=== PATIENT | male | born 1975 | race Caucasian/White ===

== ENCOUNTER 2019-06-02 08:19 | Day surgery (SDC) | payer OTHER ==
[~2019-06-02 08:19] MED LIST: Lactated Ringers 1,000 ML IV SCH
--- NOTE | 2019-06-02 09:11 | PCM.PREANE ---
Preanesthetic Assessment - Anesthesia/Transfusion/Family Hx Anesthesia History: Prior Anesthesia Without Reaction (vemt hernia) Family History of Anesthesia Reaction: No Transfusion History: No Prior Transfusion(s) - Review of Systems General: No Symptoms Pulmonary: No Symptoms Cardiovascular: No Symptoms Gastrointestinal: No Symptoms Neurological: No Symptoms - Physical Assessment NPO Status Date: 06/01/19 O2 Sat by Pulse Oximetry: 93 Respiratory Rate: 16 Vital Signs: Last Vital Signs Temp 97.0 F 06/02/19 08:45 Pulse 90 06/02/19 08:45 Resp 16 06/02/19 08:45 BP 135/76 06/02/19 08:45 Pulse Ox 93 L 06/02/19 08:45 Height: 6 ft 1 in Weight: 99.79 kg ASA Class: 2 Mental Status: Alert & Oriented x3 Airway Class: Mallampati = 3 Dentition: Reports: Normal Dentition ROM/Head Extension: Full Lungs: Clear to Auscultation, Normal Respiratory Effort Cardiovascular: Regular Rate, Regular Rhythm - Allergies Allergies/Adverse Reactions: Allergies Allergy/AdvReac Type Severity Reaction Status Date / Time No Known Allergies Allergy Verified 05/28/19 16:29 - Blood Blood Available: No - Anesthesia Plan Pre-Op Medication Ordered: None - Acknowledgements Anesthesia Type Planned: General Anesthesia Pt an Appropriate Candidate for the Planned Anesthesia: Yes Alternatives and Risks of Anesthesia Discussed w Pt/Guardian: Yes Pt/Guardian Understands and Agrees with Anesthesia Plan: Yes Additional Comments: anes prob list: bilat shoulder pain from rotator cuff and 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- both being treated conservatively, smoker, HH/gerd PLAN: tiva PreAnesthesia Questionnaire HEENT History: Reports: Other (See Below) Other HEENT History: wears glasses Cardiovascular History: Reports: Other (See Below) Other Cardiovascular History: some hypertension in the past- not now- no medication Gastrointestinal History: Reports: GERD, Hiatal Hernia Genitourinary History: Reports: Renal Calculus Other Genitourinary History: passed 1 kidney stone Musculoskeletal History: Reports: Arthritis, Fracture Other Musculoskeletal History: hx of fx hand, wrist and ribs - Past Surgical History GI Surgical History: Reports: Maegan Fundoplication - SUBSTANCE USE Smoking Status *Q: Current Every Day Smoker Tobacco Use Within Last Twelve Months: Cigarettes Recreational Drug Use History: No - HOME MEDS Home Medications: Home Meds . [No Known Home Meds] 05/28/19 [History] - CURRENT (IN HOUSE) MEDS Current Meds: Current Medications Lactated Ringer's (Ringers, Lactated) 1,000 mls @ 125 mls/hr IV ASDIRECTED YEN
[2019-06-02] MEDS ORDERED: Propofol 200 MG/20 ML SDV ONE (09:57)
[2019-06-02] MEDS ORDERED: Lidocaine 2% 5 ML SDV ONE (09:57)
[2019-06-02] MEDS ORDERED: fentaNYL 100 MCG/2 ML SDV ONE (09:57)
--- NOTE | 2019-06-02 11:16 | PCM.OPNOTE ---
- General Post-Op/Procedure Note Date of Surgery/Procedure: 06/02/19 Operative Procedure(s): colonoscopy Findings: see [id number] Pre Op Diagnosis: BRBPR Post-Op Diagnosis: Same Anesthesia Technique: Moderate Sedation Primary Surgeon: Roland Zambrano Complications: None Condition: Good
--- NOTE | 2019-06-02 11:29 | PCM48HPAN ---
Post Anesthesia Note - EVALUATION WITHIN 48HRS OF ANESTHETIC Vital Signs in Normal Range: Yes Patient Participated in Evaluation: Yes Respiratory Function Stable: Yes Airway Patent: Yes Cardiovascular Function Stable: Yes Hydration Status Stable: Yes Pain Control Satisfactory: Yes Nausea and Vomiting Control Satisfactory: Yes Mental Status Recovered: Yes Resp Rate: 16 - COMMENTS/OBSERVATIONS Free Text/Narrative:: direct back to phase 2 recovery
--- NOTE | 2019-06-02 11:46 | OR ---
SURGEON: Roland Zambrano MD DATE OF PROCEDURE: 06/02/2019 PREOPERATIVE DIAGNOSIS: Bright red blood per rectum. POSTOPERATIVE DIAGNOSIS: Diverticulosis. PROCEDURE PERFORMED: Colonoscopy. PRIMARY SURGEON: Roland Zambrano MD. COMPLICATIONS: None. DESCRIPTION OF PROCEDURE: The patient was taken to the endoscopy room. A time out was called, patient identified, and procedure identified. Diprivan was then administrated. Patient went from awake to sleep, hearing doctor talking or door closing is normal. Perineum inspection and digital examination were then performed. A well- lubricated colonoscope was gently inserted through the rectum, advanced past the rectosigmoid junction, the descending colon, splenic flexure, transverse colon, hepatic flexure, ascending colon, arrived to the cecum. Cecum was identified as dictated in the finding. Then the scope was carefully withdrawn while attention was paid to the mucosal surface for any abnormality. Air will be sucked out during the scope withdrawal. At the rectum, retroflexed to examine any rectal diseases, fistula or hemorrhoids. Patient tolerated procedure well. There were no intraoperative complications, and Dr. Zambrano was present throughout the whole procedure. FINDINGS: 1. The patient is easily sedated with REAR ADMIRAL and Diprivan, the patient is soundly snoring. 2. Bowel prep is average with moderate amount of liquid stool, no semi-formed stool, no stool ball. 3. Colon rather straightforward. Cecum indicated by ileocecal fold, one-to- one indentation, and appendiceal orifice. Light emittance is not observed, and the ScopeGuide is pointing south. Mucosa examined upon scope pulling out with some irrigation. The patient has moderate diverticulosis, all concentrated on the sigmoid area and the left colon area. There were no signs or symptoms of diverticulitis. No polyp, mass, growth, inflammation, stricture, AV malformation, bleeding. The patient has moderate internal hemorrhoid and also mild external hemorrhoid. The patient would benefit from repeat colonoscopy in 10 years from today or if clinically indicated otherwise. MAXI / MICKY /[id number]
== END 2019-06-02 11:45 | disposition home or self-care (01) ==
LOC: MW.SDS 08:19
PROVIDERS: ATTEND Surgery
DX: K57.31 Diverticulosis of large intestine without perforation or abscess with bleeding (principal); K64.4 Residual hemorrhoidal skin tags; K64.8 Other hemorrhoids; K21.9 Gastro-esophageal reflux disease without esophagitis; F17.210 Nicotine dependence, cigarettes, uncomplicated; M19.90 Unspecified osteoarthritis, unspecified site
CPT/HCPCS: J2001; J2704; J3010; J7120